=== PATIENT | female | born 1980 | race Caucasian/White ===

== ENCOUNTER 2016-06-07 14:14 | Emergency (ER) ==
[2016-06-07 14:26] VITALS: BMI 39.0
[2016-06-07 15:42] LABS: BILIRUBIN,URINE Negative (NEGATIVE); KETONES,URINE 2+ (NEGATIVE); LEUKOCYTE ESTERASE ,URINE Negative (NEGATIVE); NITRITE,URINE Negative (NEGATIVE); PH,URINE 5.5 (5-9); PROTEIN,URINE 2+ (NEGATIVE); URINE, BLOOD 3+ (NEGATIVE)
[2016-06-07 15:45] LABS: BASOPHILS % (AUTO) 0.2 % (0.0-3.0); EOSINOPHILS # (AUTO) 0.1 K/ul (0.0-0.7); EOSINOPHILS % (AUTO) 0.7 % (0.0-7.0); HEMATOCRIT 40.8 % (37.0-47.0); HEMOGLOBIN 13.7 g/dl (12.0-16.0); IMMATURE GRANULOCYTE % (AUTO) 0.3 % (0.0-5.0); LYMPHOCYTES # (AUTO) 1.2 K/uL (0.60-3.4); LYMPHOCYTES % (AUTO) 13.5 (10.0-50.0); MEAN CORPUSCULAR HEMOGLOBIN 29.1 pg (27.0-31.0); MEAN CORPUSCULAR HGB CONC 33.6 (31.8-35.4); MEAN CORPUSCULAR VOLUME 86.6 fl (81.0-99.0); MONOCYTES # (AUTO) 0.6 K/uL (0.4-2.0); MONOCYTES % (AUTO) 6.8 (0-10); NEUTROPHILS # (AUTO) 7.1 K/ul (2.0-6.9); NEUTROPHILS % (AUTO) 78.5; PLATELET COUNT 218 10^3/uL (140-440); RED BLOOD COUNT 4.71 10^6/ul (4.20-5.40); WHITE BLOOD COUNT 9.02 K/ul (4.6-10.2)
[2016-06-07 15:48] LABS: ADD URINE MICROSCOPIC YES
[2016-06-07 15:59] LABS: SERUM PREGNANCY INTERNAL QC INTERNAL QC VALID
--- NOTE | 2016-06-07 15:59 | ED.PDOC ---
General ED Provider: Dr. DANIEL CAICEDO Chief Complaint: Vaginal Bleeding Stated Complaint: Patient is a 35 year old female who comes to the ER with complaints of menstral cramping. Initally had severe pain but now better after taking naproxsen. Had similar heavy period last menstral cylce. Thinks she may be pregrant. Time Seen by Physician: 14:00 Mode of Arrival: Walk-In Information Source: Patient Exam Limitations: No limitations Primary Care Provider: TOSHIA LINTON Nursing and Triage Documentation Reviewed and Agree: Yes [employer] Complaint Exam - Vaginal Bleeding Complaint/Exam Symptoms Are: Still present Timing: Constant Initial Severity: Moderate Current Severity: Moderate # of Pads Per Hour: 3 Character: Reports: Bright red, Clots. Denies: Tissue Aggravating: Reports: Floris Alleviating: Reports: Rest (an naproxin ) Associated Signs and Symptoms: Reports: Abdominal pain, Cramping : 1 Para: 1 Hx Total # of Abortions (Spontaneous & Elective): 0 Ectopic Risk Factors: Reports: Maternal age >30 Spontaneous AB Risk Factors: Reports: Increased age of mother Placental Abruption Risk Factors: Reports: None Patient Rh Status: Unknown Related Surgical History: Reports: None Abdominal Findings: Absent: Pulsatile mass, Abdominal distention, Unequal femoral pulses, Rebound tenderness, Peritoneal signs, McBurney's Point tender, CVA Tenderness, Hernia, Inguinal swelling Differential Diagnoses: Ovarian Cyst, Ectopic , Threatened AB Review of Systems - Review Of Systems Constitutional: Reports: No symptoms Eyes: Reports: No symptoms Ears, Nose, Mouth, Throat: Reports: No symptoms Respiratory: Reports: No symptoms Cardiac: Reports: No symptoms GI: Reports: No symptoms Skin: Reports: No symptoms Neurological: Reports: No symptoms Endocrine: Reports: No symptoms Hematologic/Lymphatic: Reports: No symptoms All Other Systems: Reviewed and Negative Past Medical History - Past Medical History Endocrine: Reports: None Cardiovascular: Reports: None Respiratory: Reports: None Hematological: Reports: None Gastrointestinal: Reports: None Genitourinary: Reports: None Neuro/Psych: Reports: None Musculoskeletal: Reports: None Cancer: Reports: None Last Menstrual Period: POSSIBLY 3 WEEKS AGO Other Pertinent Past Medical History: H. pylore - Surgical History General Surgical History: Reports: Orthopedic (Neck ) - Family History Family History: Reports: Unknown - Social History Smoking Status: Former smoker Hx Substance Use: No Alcohol Screening: Occasionally - Immunizations Pneumococcal Vaccine up to Date: Yes Physical Exam - Physical Exam Appearance: Ill-appearing, Obese Ill-appearing: Mild Pain Distress: Mild Neck: Supple Respiratory: Airway patent, Breath sounds clear, Breath sounds equal, Respirations nonlabored Cardiovascular: RRR, Pulses normal, No rub, No murmur GI/: Soft, Nontender, No masses, Bowel sounds normal, No Organomegaly Musculoskeletal: Normal strength, ROM intact, No edema, No calf tenderness Skin: Warm, Dry, Normal color Neurological: Sensation intact, Motor intact Psychiatric: Anxious Physician Notification - Case Discussed Physician Notified: Binh at [facility]. Time of Notification: 17:05 (acepted for transfer ) Critical Care Note - Critical Care Note Total Time (mins): 0 Course - Course Hematology/Chemistry: 06/07/16 15:35 06/07/16 15:35 Orders, Labs, Meds: Lab Review 06/07/16 06/07/16 14:35 15:35 WBC 9.02 RBC 4.71 Hgb 13.7 Hct 40.8 MCV 86.6 MCH 29.1 MCHC 33.6 RDW Coeff of [place] 12.7 Plt Count 218 Immature Gran % (Auto) 0.3 Neut % (Auto) 78.5 Lymph % (Auto) 13.5 [place] % (Auto) 6.8 Eos % (Auto) 0.7 Baso % (Auto) 0.2 Immature Gran # (Auto) 0.0 Neut # 7.1 H Lymph # 1.2 [place] # 0.6 Eos # 0.1 Baso # 0.0 Sodium 141 Potassium 3.5 Chloride 105 Carbon Dioxide 25 Anion Gap 14.5 BUN 11 Creatinine 0.77 Estimated GFR (MDRD) 84.00 BUN/Creatinine Ratio 14.28 Glucose 96 Calcium 9.4 Total Bilirubin 0.36 AST 21 ALT 29 Alkaline Phosphatase 86 Total Protein 7.7 Albumin 4.1 Globulin 3.6 Albumin/Globulin Ratio 1.14 TSH 1.916 HCG, Quant 41.05 Serum , Qual Positive Urine Color Yellow Urine Clarity Slightly Urine pH 5.5 Ur Specific [place] >=1.030 Urine Protein 2+ Urine Glucose (UA) Negative Urine Ketones 2+ Urine Blood 3+ Urine Nitrite Negative Urine Bilirubin Negative Urine Urobilinogen 0.2 Ur Leukocyte Esterase Negative Urine Microscopic RBC 10-20 Ur Squamous Epith Cells Not present Urine Mucus Trace Orders Category Date Time Status ED IV/MEDIPORT/POWERPORT .ONCE EMERGENCY 06/07/16 17:19 Active CBC W/ AUTO DIFF Stat LAB 06/07/16 15:35 Completed COMPREHENSIVE METABOLIC PANEL Stat LAB 06/07/16 15:35 Completed HCG,QUANTITATIVE Stat LAB 06/07/16 14:35 Completed SERUM Stat LAB 06/07/16 15:35 Completed TSH [THYROID STIMULATING HORMONE] Stat LAB 06/07/16 15:35 Completed URINALYSIS C & S IF INDICATED Stat LAB 06/07/16 14:35 Completed 0.9 % Sodium Chloride [Saline Flush] MEDS 06/07/16 17:19 Discontinued 1 syr IVF PRN PRN Sodium Chloride 0.9% [Sodium Chloride] 1,000 ml MEDS 06/07/16 17:19 Discontinued IV BOLUS Medications Discontinued Medications Generic Name Dose Route Start Last Admin Trade Name Freq PRN Reason Stop Dose Admin Sodium Chloride 1,000 mls @ 1,000 mls/hr 06/07/16 17:19 06/07/16 17:21 Sodium Chloride IV 06/07/16 18:18 1,000 mls/hr BOLUS STA Administration Sodium Chloride 1 syr 06/07/16 17:19 Saline Flush IVF PRN PRN To flush IV Vital Signs: Temp Pulse Resp BP Pulse Ox 06/07/16 17:23 97.9 F 72 20 141/88 H 100 06/07/16 14:14 98.4 F 77 18 170/103 H 97 Departure - Departure Time of Disposition: 18:05 Disposition: TSF SHORT-TRM HOSP Discharge Problem: Qualifiers: Weeks of gestation: unspecified Qualifier Code: (Z33.1) state, incidental Condition: Fair Pt referred to PMD for follow-up: No (transfered) Allergies/Adverse Reactions: Allergies pseudoephedrine [From Sudafed] Adverse Reaction (Verified 06/07/16 14:20) Home Medications: Ambulatory Orders Ascorbate Calcium [Vitamin C] 500 mg PO DAILY 06/07/16 Chrom Liz/Brindal Owens [Garcinia Cambogia Tablet] 1 each PO DAILY 06/07/16 Vit B Comp/C/FA/Iron/Vit E [Vitamin B Complex Tablet] 1 each PO DAILY 06/07/16 Disposition Discussed With: Patient
[2016-06-07 16:27] LABS: ALBUMIN 4.1 g/dL (3.4-5.0); ALBUMIN/GLOBULIN RATIO 1.14; ANION GAP 14.5; BILIRUBIN,TOTAL 0.36 mg/dL (0.00-1.20); BUN/CREATININE RATIO 14.28; CALCIUM 9.4 mg/dL (8.2-10.2); CREATININE 0.77 mg/dL (0.60-1.30); POTASSIUM 3.5 mmol/L (3.5-5.10); TOTAL PROTEIN 7.7 g/dL (6.4-8.2)
[2016-06-07] MEDS ORDERED: SODIUM CHLORIDE 1,000 ML IV STA (17:19)
[2016-06-07 17:24] VITALS: BP 141/88; TEMP 97.9
== END 2016-06-07 18:12 | disposition short-term general hospital (02) ==
LOC: ED 14:14
DX: R10.9 Unspecified abdominal pain (principal); N93.8 Other specified abnormal uterine and vaginal bleeding; Z33.1 Pregnant state, incidental
CPT/HCPCS: 36415; 80053; 81001; 84443; 84702; 84703; 85025; 96360; 99285

== ENCOUNTER 2016-06-07 18:16 | Outpatient (CLI) ==
[2016-06-07 14:26] VITALS: BMI 39.0
== END 2016-06-07 18:17 | disposition home or self-care (01) ==
LOC: AMBL 18:16
PROVIDERS: ATTEND Internal Medicine Geriatric Medicine
DX: N93.8 Other specified abnormal uterine and vaginal bleeding (principal); R10.9 Unspecified abdominal pain; Z33.1 Pregnant state, incidental